=== PATIENT | male | born 1995 | race Caucasian/White ===

== ENCOUNTER 2019-04-07 23:20 | Emergency (ER) | payer SELFPAY ==
--- NOTE | 2019-04-07 23:44 | EDM.PDOC ---
ED HPI GENERAL MEDICAL PROBLEM - General Chief Complaint: Lower Extremity Injury/Pain Stated Complaint: INJURY TO LEFT ANKLE Time Seen by Provider: 04/08/19 00:10 Source of Information: Reports: Patient History Limitations: Reports: No Limitations - History of Present Illness INITIAL COMMENTS - FREE TEXT/NARRATIVE: Patient presents to the emergency room with chief complaint of injuring his ankle with a skate. He has a laceration no other injuries. Onset: Today Duration: Hour(s): Location: Reports: Lower Extremity, Left Quality: Reports: Stabbing Severity: Mild Improves with: Reports: None Worsens with: Reports: None Context: Reports: Trauma left ankle Pain Score (Numeric/FACES): 1 - Related Data Allergies Allergy/AdvReac Type Severity Reaction Status Date / Time No Known Allergies Allergy Verified 04/07/19 23:30 Home Meds: Home Meds Amoxicillin 500 mg PO 04/07/19 [History] Past Medical History HEENT History: Reports: None Cardiovascular History: Reports: None Respiratory History: Reports: None Gastrointestinal History: Reports: None Genitourinary History: Reports: None Other Musculoskeletal History: fx to left wrist/forearm, fx right wrist x 2 Neurological History: Reports: None Psychiatric History: Reports: None Endocrine/Metabolic History: Reports: None Hematologic History: Reports: None Immunologic History: Reports: None Dermatologic History: Reports: None - Infectious Disease History Infectious Disease History: Reports: None Social & Family History - Family History Family Medical History: Noncontributory - Tobacco Use Smoking Status *Q: Current Every Day Smoker Years of Tobacco use: 3 Packs/Tins Daily: 1 - Recreational Drug Use Recreational Drug Use: No Review of Systems - Review of Systems Review Of Systems: See Below Constitutional: Reports: No Symptoms Eyes: Reports: No Symptoms Ears: Reports: No Symptoms Nose: Reports: No Symptoms Mouth/Throat: Reports: No Symptoms Respiratory: Reports: No Symptoms Cardiovascular: Reports: No Symptoms GI/Abdominal: Reports: No Symptoms Genitourinary: Reports: No Symptoms Musculoskeletal: Reports: Leg Pain Skin: Reports: Other (Serration to the left ankle area) Neurological: Reports: No Symptoms Psychiatric: Reports: No Symptoms ED EXAM, GENERAL - Physical Exam Exam: See Below Free Text/Narrative:: 33-year-old male injured his left ankle medial aspect with a skate while skating. Patient has a 3 cm laceration to the area. Bleeding is controlled this time neurovascular within normal limits Exam Limited By: No Limitations General Appearance: Alert, WD/WN, No Apparent Distress Eye Exam: Bilateral Eye: Normal Fundi, Normal Inspection Ears: Normal External Exam, Normal Canal, Hearing Grossly Normal Ear Exam: Bilateral Ear: Auricle Normal, Canal Normal Nose: Normal Inspection, Normal Mucosa Throat/Mouth: Normal Inspection, Normal Lips, Normal Teeth Head: Atraumatic, Normocephalic Neck: Normal Inspection Respiratory/Chest: No Respiratory Distress Cardiovascular: Normal Peripheral Pulses GI/Abdominal: Normal Bowel Sounds (Male) Exam: Deferred Rectal (Males) Exam: Deferred Back Exam: Normal Inspection Extremities: Other (Patient has a 3 cm laceration to the left ankle area. No active bleeding clear clean linear lacedration) Neurological: Alert, Oriented Psychiatric: Normal Affect Skin Exam: Warm, Other (Centimeter laceration left ankle area) Lymphatic: No Adenopathy ED TRAUMA EXTREMITY PROCEDURES - Laceration/Wound Repair Left Lower Ankle Lac/Wound Length In cm: 3 Appearance: Linear Distal NVT: Neuro & Vascular Intact, No Tendon Injury Anesthetic Type: Local Local Anesthesia - Lidocaine (Xylocaine): 1% with EPI Local Anesthetic Volume: 4cc Skin Prep: Chlorhexidine (Hibiciens) Saline Irrigation (cc's): 50 Exploration/Debridement/Repair: Wound Explored, In a Bloodless Field Closed With: Sutures Suture Size: 4-0 # of Sutures: 3 Suture Type: Mattress Course - Vital Signs Last Recorded V/S: Last Vital Signs Temp 98.3 F 04/07/19 23:30 Pulse 96 04/07/19 23:30 Resp 18 04/07/19 23:30 BP 127/74 04/07/19 23:30 Pulse Ox 96 04/07/19 23:30 - Orders/Labs/Meds Meds: Medications Discontinued Medications Generic Name Dose Route Start Last Admin Trade Name Deborah PRN Reason Stop Dose Admin Lidocaine/Epinephrine 10 ml 04/07/19 23:48 Xylocaine 1% With Epinephrine 1:100,000 INJECT 04/07/19 23:49 ONETIME ONE Lidocaine/Epinephrine Confirm 04/07/19 23:51 Xylocaine 1% With Epinephrine 1:100,000 Administered 04/07/19 23:52 Dose 20 ml .ROUTE .STK-MED ONE Departure - Departure Time of Disposition: 00:18 Disposition: Home, Self-Care 01 Condition: Good Clinical Impression: Laceration, Laceration of left ankle - Discharge Information Instructions: Laceration Care, Adult Referrals: PCP,None [Primary Care Provider] - Forms: ED Department Discharge Sepsis Event Note - Evaluation Sepsis Screening Result: No Definite Risk - Focused Exam Vital Signs: Vital Signs Temp Pulse Resp BP Pulse Ox 04/07/19 23:30 98.3 F 96 18 127/74 96 Date Exam was Performed: 04/08/19 Time Exam was Performed: 00:10
[2019-04-07] MEDS ORDERED: Lidocaine 1% with EPINEPHrine 1:100,000 10 ML MDV INJECT ONE (23:48)
[2019-04-07] MEDS ORDERED: Lidocaine 1% with EPINEPHrine 1:100,000 20 ML MDV ONE (23:51)
== END 2019-04-08 00:31 | disposition home or self-care (01) ==
LOC: MW.ED 23:20
DX: S91.012A Laceration without foreign body, left ankle, initial encounter (principal); F17.210 Nicotine dependence, cigarettes, uncomplicated; W22.8XXA Striking against or struck by other objects, initial encounter; Y93.65 Activity, lacrosse and field hockey
CPT/HCPCS: 12002; 99282